=== PATIENT | female | born 1980 | race Caucasian/White ===

== ENCOUNTER 2021-05-05 11:39 | Inpatient (IN) | payer MEDICAID, OTHER ==
[~2021-05-05] VITALS: Ht 165.1 cm; Wt 92.5 kg
[2021-05-05] VITALS (11 sets, daily range): BP systolic 94–114; BP diastolic 56–73
[2021-05-05] MEDS: POTASSIUM CHL 20MEQ/100ML 100 ML IV SCH ×2 (01:30→22:11)
[2021-05-05] MEDS ORDERED: MORPHINE SULFATE 4 MG/ML SYR/VIAL IV ONE (11:45)
[2021-05-05] MEDS ORDERED: ONDANSETRON HCL 4 MG/2 ML VIAL IV ONE (11:45)
[2021-05-05 12:16] LABS: Eosinophils # (auto) 0.1 10 ^3/uL (0-0.8); Hematocrit 17.7 % (36.0-46.0); Red Blood Cells 1.34 10^6/uL (4.0-5.20)
[2021-05-05 12:18] LABS: Basophils # (auto) 0.1 10 ^3/uL (0-0.2); Basophils % (auto) 0.5 % (0.0-2.0); Eosinophils % (auto) 0.9 % (0.0-7.0); Lymphocytes % (auto) 6.1 % (10.0-50.0); Mean Corpuscular Hemoglobin 45.3 pg (28.0-32.0); Mean Corpuscular Hgb Conc. 34.2 g/dL (32.0-36.0); Mean Corpuscular Volume 132.7 fL (80.0-100.0); Monocytes # (auto) 0.6 10 ^3/uL (0-1.3); Monocytes % (auto) 3.5 % (0.0-12.0); Neutrophils # (auto) 14.9 10 ^3/uL (1.6-8.6); Nucleated Red Blood Cells % 0.3 %; White Blood Cell 16.8 10^3/uL (4.4-10.8)
[2021-05-05 12:24] LABS: Hemoglobin 6.1 g/dL (12.2-16.2)
[2021-05-05 12:25] LABS: Albumin 1.7 g/dL (3.4-5.0); Calcium 7.1 mg/dL (8.5-10.1); INR 1.69 (0.9-1.15); Partial Thromboplastin Time 36.5 sec (23.6-33.0)
[2021-05-05 12:30] LABS: BUN/Creatinine Ratio 29.5; Bilirubin, Total 5.5 mg/dL (0.2-1.0); Total Protein 6.8 g/dL (6.4-8.2)
[2021-05-05 12:39] LABS: Potassium 2.4 mmol/L (3.5-5.1)
[2021-05-05] MEDS ORDERED: POTASSIUM CHL 20 Meq TABLET PO ONE ×2 (13:00→21:30)
[2021-05-05] MEDS ORDERED: POTASSIUM CHL 20MEQ/100ML 100 ML IV ONE (13:00)
[2021-05-05] MEDS ORDERED: SODIUM CHL 3% 500 ML IV ONE (13:00)
[2021-05-05] MEDS ORDERED: NITROGLYCERIN 0.4 MG SL TAB SL PRN (14:00)
[2021-05-05] MEDS ORDERED: MORPHINE SULFATE INJECTION 2 MG/ML SYRG IV PRN (14:00)
[2021-05-05] MEDS ORDERED: PANTOPRAZOLE 40mg/50ML NS AE 50 ML IV SCH (14:15)
[2021-05-05] MEDS ORDERED: PANTOPRAZOLE 40 MG/10 ML VIAL INJ IV ONE (14:15)
[2021-05-05] MEDS ORDERED: PANTOPRAZOLE 80 MG in SODIUM CHL 0.9% 80 ML IV ONE (14:50)
[2021-05-05] MEDS ORDERED: PHYTONADIONE(VitK) ORAL Susp 5mg/5ml(1mg/ml) PO ONE (15:15)
[2021-05-05] MEDS: SOD CHL 0.9%/ KCL 40MEQ 1,000 ML IV SCH ×2 (15:30→23:00)
[2021-05-05] MEDS: MAGNESIUM SULFATE 1GM/100ML 100 ML IV SCH ×4 (16:00→19:56)
[2021-05-05 16:18] LABS: Urine Bacteria FEW /hpf (None Seen); Urine Blood Negative /uL (Negative); Urine Specific Gravity 1.011 (1.001-1.035); Urine WBC 2 /hpf (0 - 5)
[2021-05-05 16:34] LABS: BUN/Creatinine Ratio 31.3; Calcium 6.5 mg/dL (8.5-10.1)
[2021-05-05 16:42] LABS: Creatinine, Urine 71 mg/dL (30.0-125.0); Protein, Urine 23.7 mg/dL (0.0-11.9); Sodium Urine < 5 mmol/L (40-220)
[2021-05-05 16:43] LABS: Folate (Folic Acid) 0.99 ng/mL (5.38-24)
[2021-05-05 16:53] LABS: Potassium 2.6 mmol/L (3.5-5.1)
[2021-05-05 17:18] LABS: % Iron Saturation 98.3 % (15-50)
[2021-05-05 20:48] LABS: Urine Bacteria FEW /hpf (None Seen); Urine Blood Negative /uL (Negative); Urine Specific Gravity 1.011 (1.001-1.035); Urine WBC 2 /hpf (0 - 5)
[2021-05-05 20:54] LABS: BUN/Creatinine Ratio 26.9; Calcium 6.7 mg/dL (8.5-10.1)
[2021-05-05 20:57] LABS: Potassium 2.8 mmol/L (3.5-5.1)
[2021-05-05] MEDS: MORPHINE SULFATE INJECTION 2 MG/ML SYRG IV PRN (22:10)
[2021-05-05] MEDS: PANTOPRAZOLE 40 MG/10 ML VIAL INJ IV SCH (22:11)
[2021-05-05] MEDS ORDERED: DOPamine 1600MCG/ML D5W 250 ML IV SCH (23:00)
[2021-05-05] MEDS: DOPamine 1600MCG/ML D5W 250 ML IV SCH (23:07)
[2021-05-06] VITALS (7 sets, daily range): BP systolic 93–118; BP diastolic 58–73
[2021-05-06 01:09] LABS: Hemoglobin 7.5 g/dL (12.2-16.2)
[2021-05-06 01:10] LABS: Hematocrit 21.2 % (36.0-46.0); Mean Corpuscular Hemoglobin 40.1 pg (28.0-32.0); Mean Corpuscular Hgb Conc. 35.4 g/dL (32.0-36.0); Mean Corpuscular Volume 113.2 fL (80.0-100.0); Red Blood Cells 1.87 10^6/uL (4.0-5.20); White Blood Cell 16.1 10^3/uL (4.4-10.8)
[2021-05-06 01:18] LABS: Red Cell Distribution Width 30.7 % (11.8-14.3)
[2021-05-06 01:19] LABS: Basophils % (manual) 0 (0.0-2.0); Blast Cells 0; Eosinophils % (manual) 0 (0-7); Metamyelocytes % 0; Myelocytes % 0; Promyelocytes % 0; Reactive Lymphocytes 0
[2021-05-06 01:29] LABS: Magnesium 2.5 mg/dL (1.6-2.6)
[2021-05-06 01:51] LABS: Band Neutrophils % (manual) 13; Lymphocytes % (manual) 7 (10.0-50.0); Monocytes % (manual) 5 (0-12)
[2021-05-06 04:02] LABS: Eosinophils # (auto) 0.1 10 ^3/uL (0-0.8); Eosinophils % (auto) 0.9 % (0.0-7.0); Mean Corpuscular Hemoglobin 39.1 pg (28.0-32.0)
[2021-05-06 04:03] LABS: Basophils # (auto) 0 10 ^3/uL (0-0.2); Basophils % (auto) 0.2 % (0.0-2.0); Hematocrit 22.9 % (36.0-46.0); Lymphocytes # (auto) 0.8 10 ^3/uL (0.4-5.4); Lymphocytes % (auto) 5.4 % (10.0-50.0); Mean Corpuscular Hgb Conc. 35.1 g/dL (32.0-36.0); Mean Corpuscular Volume 111.7 fL (80.0-100.0); Monocytes # (auto) 0.4 10 ^3/uL (0-1.3); Neutrophils % (auto) 90.5 % (37.0-80.0); Nucleated Red Blood Cells % 0.2 %; Red Blood Cells 2.05 10^6/uL (4.0-5.20); White Blood Cell 14.3 10^3/uL (4.4-10.8)
[2021-05-06 04:04] LABS: Red Cell Distribution Width 30.6 % (11.8-14.3)
[2021-05-06 04:16] LABS: INR 1.45 (0.9-1.15)
[2021-05-06 04:19] LABS: Albumin 2.1 g/dL (3.4-5.0); Bilirubin, Direct 5.6 mg/dL (0-0.2); Calcium 6.9 mg/dL (8.5-10.1); Potassium 3.1 mmol/L (3.5-5.1)
[2021-05-06 04:27] LABS: BUN/Creatinine Ratio 24.7; Bilirubin, Total 7.2 mg/dL (0.2-1.0); CRP High Sensitivity 7.43 mg/dL (< 0.3); Total Protein 7.5 g/dL (6.4-8.2)
[2021-05-06] MEDS: SOD CHL 0.9%/ KCL 40MEQ 1,000 ML IV SCH ×3 (04:37→19:25)
[2021-05-06] MEDS: OCTREOTIDE ACETATE 100 MCG/ML VL SUBCUT SCH ×3 (05:39→21:18)
[2021-05-06] MEDS ORDERED: BUMETANIDE 2.5mg/10ml (0.25 mg/ml) INJ IV ONE (08:30)
[2021-05-06] MEDS ORDERED: SODIUM CHL 3% 500 ML IV ONE (08:30)
[2021-05-06] MEDS ORDERED: SODIUM CHL 3% 500 ML IV SCH (08:45)
[2021-05-06] MEDS: PANTOPRAZOLE 40 MG/10 ML VIAL INJ IV SCH ×2 (09:16→21:17)
[2021-05-06] MEDS: POTASSIUM EFFERVESENT TAB 25 MEQ PO SCH ×2 (09:17→14:36)
[2021-05-06] MEDS: THIAMINE 100mg/ml INJ (200mg/2ml VIAL) IV SCH (09:17)
[2021-05-06] MEDS: FOLIC ACID 1 MG in D5W 5% 50 ML INJ SCH (10:01)
[2021-05-06 10:24] LABS: Calcium 6.6 mg/dL (8.5-10.1); Potassium 3.9 mmol/L (3.5-5.1)
[2021-05-06 10:26] LABS: BUN/Creatinine Ratio 21.9
[2021-05-06] MEDS: MORPHINE SULFATE INJECTION 2 MG/ML SYRG IV PRN (10:52)
[2021-05-06 12:10] LABS: Basophils # (auto) 0 10 ^3/uL (0-0.2); Hemoglobin 7.3 g/dL (12.2-16.2); Lymphocytes # (auto) 0.8 10 ^3/uL (0.4-5.4); Monocytes # (auto) 0.6 10 ^3/uL (0-1.3); Neutrophils # (auto) 14.1 10 ^3/uL (1.6-8.6); White Blood Cell 15.6 10^3/uL (4.4-10.8)
[2021-05-06 12:11] LABS: Basophils % (auto) 0.2 % (0.0-2.0); Eosinophils # (auto) 0.2 10 ^3/uL (0-0.8); Eosinophils % (auto) 1.1 % (0.0-7.0); Hematocrit 21.3 % (36.0-46.0); Mean Corpuscular Hemoglobin 38.9 pg (28.0-32.0); Mean Corpuscular Hgb Conc. 34.3 g/dL (32.0-36.0); Mean Corpuscular Volume 113.2 fL (80.0-100.0); Monocytes % (auto) 3.6 % (0.0-12.0); Neutrophils % (auto) 90.1 % (37.0-80.0); Nucleated Red Blood Cells % 0.1 %; Red Blood Cells 1.88 10^6/uL (4.0-5.20)
[2021-05-06 12:42] LABS: Red Cell Distribution Width 30.2 % (11.8-14.3)
[2021-05-06] MEDS ORDERED: SODIUM PHOSPHATES 20 MEQ in SODIUM CHL 0.9% 100 ML IV ONE (15:00)
[2021-05-06] MEDS ORDERED: LACTULOSE 20Gm/30ML SOLN PO ONE (15:00)
[2021-05-06 15:40] LABS: Calcium 6.8 mg/dL (8.5-10.1); Potassium 4.4 mmol/L (3.5-5.1)
[2021-05-06] MEDS ORDERED: ONDANSETRON HCL 4 MG/2 ML VIAL ONE (16:13)
[2021-05-06] MEDS: DOPamine 1600MCG/ML D5W 250 ML IV SCH (22:01)
[2021-05-06 22:53] LABS: Basophils # (auto) 0 10 ^3/uL (0-0.2); Eosinophils # (auto) 0.2 10 ^3/uL (0-0.8); Eosinophils % (auto) 1.6 % (0.0-7.0); Lymphocytes # (auto) 1.1 10 ^3/uL (0.4-5.4)
[2021-05-06 22:55] LABS: Hematocrit 24.4 % (36.0-46.0); Hemoglobin 8.4 g/dL (12.2-16.2); Lymphocytes % (auto) 7.1 % (10.0-50.0); Mean Corpuscular Hemoglobin 37.6 pg (28.0-32.0); Mean Corpuscular Hgb Conc. 34.4 g/dL (32.0-36.0); Mean Corpuscular Volume 109.4 fL (80.0-100.0); Monocytes # (auto) 0.1 10 ^3/uL (0-1.3); Monocytes % (auto) 0.9 % (0.0-12.0); Neutrophils # (auto) 13.8 10 ^3/uL (1.6-8.6); Neutrophils % (auto) 90.4 % (37.0-80.0); Nucleated Red Blood Cells % 0.1 %; Red Blood Cells 2.23 10^6/uL (4.0-5.20); Red Cell Distribution Width 29.4 % (11.8-14.3); White Blood Cell 15.3 10^3/uL (4.4-10.8)
[2021-05-06 23:15] LABS: BUN/Creatinine Ratio 18.8
[2021-05-06 23:27] LABS: Calcium 6.7 mg/dL (8.5-10.1)
[2021-05-07] MEDS: SOD CHL 0.9%/ KCL 40MEQ 1,000 ML IV SCH (04:05)
[2021-05-07] MEDS: OCTREOTIDE ACETATE 100 MCG/ML VL SUBCUT SCH ×3 (05:50→21:22)
[2021-05-07 06:10] LABS: Eosinophils # (auto) 0.3 10 ^3/uL (0-0.8); Nucleated Red Blood Cells % 0.1 %
[2021-05-07 06:11] LABS: Basophils # (auto) 0 10 ^3/uL (0-0.2); Basophils % (auto) 0.1 % (0.0-2.0); Hematocrit 23.5 % (36.0-46.0); Hemoglobin 8.2 g/dL (12.2-16.2); Lymphocytes % (auto) 6.2 % (10.0-50.0); Mean Corpuscular Hemoglobin 38.1 pg (28.0-32.0); Mean Corpuscular Volume 108.9 fL (80.0-100.0); Monocytes # (auto) 0.6 10 ^3/uL (0-1.3); Monocytes % (auto) 3.3 % (0.0-12.0); Neutrophils # (auto) 14.9 10 ^3/uL (1.6-8.6); Neutrophils % (auto) 88.4 % (37.0-80.0); Red Blood Cells 2.16 10^6/uL (4.0-5.20); White Blood Cell 16.8 10^3/uL (4.4-10.8)
[2021-05-07 06:12] LABS: Red Cell Distribution Width 29.5 % (11.8-14.3)
[2021-05-07 06:23] LABS: INR 1.44 (0.9-1.15)
[2021-05-07 06:29] LABS: Albumin 1.8 g/dL (3.4-5.0)
[2021-05-07 06:31] LABS: BUN/Creatinine Ratio 18.3; Calcium 6.9 mg/dL (8.5-10.1)
[2021-05-07 06:33] LABS: Bilirubin, Direct 6.3 mg/dL (0-0.2); Total Protein 6.7 g/dL (6.4-8.2)
[2021-05-07] MEDS: PANTOPRAZOLE 40 MG/10 ML VIAL INJ IV SCH ×2 (10:02→21:22)
[2021-05-07] MEDS: THIAMINE 100mg/ml INJ (200mg/2ml VIAL) IV SCH (10:08)
[2021-05-07] MEDS: FOLIC ACID 1 MG in D5W 5% 50 ML INJ SCH (10:36)
[2021-05-07] MEDS ORDERED: PHYTONADIONE(VitK) ORAL Susp 5mg/5ml(1mg/ml) PO ONE (10:45)
[2021-05-07] MEDS ORDERED: FUROSEMIDE 40 MG/4 ML VIAL IV ONE (11:15)
[2021-05-07 11:26] LABS: BUN/Creatinine Ratio 16.7; Calcium 7.2 mg/dL (8.5-10.1)
[2021-05-07 11:30] LABS: Potassium 5.1 mmol/L (3.5-5.1)
[2021-05-07 12:09] LABS: Hemoglobin 8.2 g/dL (12.2-16.2); Red Blood Cells 2.18 10^6/uL (4.0-5.20)
[2021-05-07 12:11] LABS: Hematocrit 23.9 % (36.0-46.0); Mean Corpuscular Hemoglobin 37.6 pg (28.0-32.0); Mean Corpuscular Hgb Conc. 34.4 g/dL (32.0-36.0); Mean Corpuscular Volume 109.4 fL (80.0-100.0); White Blood Cell 16.9 10^3/uL (4.4-10.8)
[2021-05-07 12:12] LABS: Red Cell Distribution Width 29.6 % (11.8-14.3)
[2021-05-07 12:14] LABS: Basophils % (manual) 0 (0.0-2.0); Blast Cells 0; Metamyelocytes % 0; Myelocytes % 0; Promyelocytes % 0; Reactive Lymphocytes 0
[2021-05-07 12:45] LABS: Band Neutrophils % (manual) 2; Eosinophils % (manual) 1 (0-7); Lymphocytes % (manual) 4 (10.0-50.0); Monocytes % (manual) 7 (0-12)
[2021-05-07 20:24] LABS: Basophils # (auto) 0.1 10 ^3/uL (0-0.2); Eosinophils # (auto) 0.3 10 ^3/uL (0-0.8); Hemoglobin 8.3 g/dL (12.2-16.2); Mean Corpuscular Hgb Conc. 34.2 g/dL (32.0-36.0); Monocytes # (auto) 0.7 10 ^3/uL (0-1.3)
[2021-05-07 20:27] LABS: Basophils % (auto) 0.6 % (0.0-2.0); Eosinophils % (auto) 1.8 % (0.0-7.0); Hematocrit 24.1 % (36.0-46.0); Lymphocytes # (auto) 1.2 10 ^3/uL (0.4-5.4); Lymphocytes % (auto) 8.2 % (10.0-50.0); Mean Corpuscular Hemoglobin 38.1 pg (28.0-32.0); Mean Corpuscular Volume 111.3 fL (80.0-100.0); Monocytes % (auto) 4.4 % (0.0-12.0); Neutrophils # (auto) 12.8 10 ^3/uL (1.6-8.6); Nucleated Red Blood Cells % 0.1 %; Red Blood Cells 2.17 10^6/uL (4.0-5.20); White Blood Cell 15.1 10^3/uL (4.4-10.8)
[2021-05-07 20:41] LABS: Calcium 7.4 mg/dL (8.5-10.1)
[2021-05-07] MEDS: DOPamine 1600MCG/ML D5W 250 ML IV SCH (21:16)
[2021-05-07 23:07] LABS: BUN/Creatinine Ratio 16.7; Calcium 7.2 mg/dL (8.5-10.1); Potassium 4.2 mmol/L (3.5-5.1)
[2021-05-07 23:50] VITALS: BP 108/74
[2021-05-08] MEDS ORDERED: LORA-483 PO (00:02)
[2021-05-08] MEDS ORDERED: OMEP-260 PO (00:02)
[2021-05-08 05:00] VITALS: BP 107/64
[2021-05-08] MEDS: CYCLOBENZAPRINE HCL 10 MG TAB PO PRN ×3 (05:01→21:50)
[2021-05-08] MEDS: OCTREOTIDE ACETATE 100 MCG/ML VL SUBCUT SCH ×3 (06:43→21:34)
[2021-05-08 07:58] LABS: BUN/Creatinine Ratio 17.9; Calcium 7.4 mg/dL (8.5-10.1)
[2021-05-08 08:13] VITALS: BP 100/61
[2021-05-08] MEDS: PANTOPRAZOLE 40 MG/10 ML VIAL INJ IV SCH ×2 (10:22→21:33)
[2021-05-08] MEDS: FOLIC ACID 1 MG in D5W 5% 50 ML INJ SCH (10:23)
[2021-05-08] MEDS: THIAMINE 100mg/ml INJ (200mg/2ml VIAL) IV SCH (10:24)
[2021-05-08] MEDS ORDERED: SODIUM PHOSPHATES 40 MEQ in D5W 5% 250 ML IV ONE (11:00)
[2021-05-08] MEDS: DOPamine 1600MCG/ML D5W 250 ML IV SCH (11:10)
[2021-05-08 11:26] LABS: BUN/Creatinine Ratio 12.1; Calcium 7.5 mg/dL (8.5-10.1)
[2021-05-08 12:03] VITALS: BP 104/73
[2021-05-08 16:13] LABS: Basophils # (auto) 0.1 10 ^3/uL (0-0.2); Hemoglobin 7.8 g/dL (12.2-16.2); Lymphocytes # (auto) 1.2 10 ^3/uL (0.4-5.4); Monocytes # (auto) 0.9 10 ^3/uL (0-1.3); Monocytes % (auto) 6.5 % (0.0-12.0); Neutrophils # (auto) 10.7 10 ^3/uL (1.6-8.6); White Blood Cell 13.3 10^3/uL (4.4-10.8)
[2021-05-08 16:15] LABS: Basophils % (auto) 0.9 % (0.0-2.0); Eosinophils # (auto) 0.4 10 ^3/uL (0-0.8); Hematocrit 23.1 % (36.0-46.0); Lymphocytes % (auto) 8.8 % (10.0-50.0); Mean Corpuscular Hemoglobin 37.6 pg (28.0-32.0); Mean Corpuscular Hgb Conc. 33.9 g/dL (32.0-36.0); Neutrophils % (auto) 80.8 % (37.0-80.0); Nucleated Red Blood Cells % 0.1 %; Red Blood Cells 2.08 10^6/uL (4.0-5.20)
[2021-05-08 16:19] LABS: Red Cell Distribution Width 30.2 % (11.8-14.3)
[2021-05-08 16:27] LABS: BUN/Creatinine Ratio 12.5; Calcium 7.7 mg/dL (8.5-10.1)
[2021-05-08 16:35] VITALS: BP 108/69
[2021-05-08 19:00] LABS: Calcium 7.6 mg/dL (8.5-10.1)
[2021-05-08 19:02] LABS: BUN/Creatinine Ratio 11.3
[2021-05-08 22:00] VITALS: BP 105/67
[2021-05-08] MEDS ORDERED: TEMAZEPAM 15 MG CAP PO ONE (22:00)
[2021-05-09 01:26] LABS: BUN/Creatinine Ratio 10.5; Calcium 7.6 mg/dL (8.5-10.1); Potassium 3.8 mmol/L (3.5-5.1)
[2021-05-09 05:00] VITALS: BP 117/70
[2021-05-09 05:37] LABS: INR 1.49 (0.9-1.15)
[2021-05-09 05:46] LABS: BUN/Creatinine Ratio 10.7; Calcium 7.7 mg/dL (8.5-10.1); Potassium 3.8 mmol/L (3.5-5.1)
[2021-05-09 05:48] LABS: Albumin 1.8 g/dL (3.4-5.0)
[2021-05-09 05:53] LABS: Bilirubin, Direct 4.8 mg/dL (0-0.2); Bilirubin, Total 5.6 mg/dL (0.2-1.0); Total Protein 6.8 g/dL (6.4-8.2)
[2021-05-09] MEDS: OCTREOTIDE ACETATE 100 MCG/ML VL SUBCUT SCH ×2 (06:06→17:00)
[2021-05-09 09:00] VITALS: BP 103/53
[2021-05-09] MEDS: THIAMINE 100mg/ml INJ (200mg/2ml VIAL) IV SCH (10:28)
[2021-05-09] MEDS: FOLIC ACID 1 MG in D5W 5% 50 ML INJ SCH (10:28)
[2021-05-09] MEDS: PANTOPRAZOLE 40 MG/10 ML VIAL INJ IV SCH (10:28)
[2021-05-09] MEDS: CYCLOBENZAPRINE HCL 10 MG TAB PO PRN (11:26)
[2021-05-09 12:09] LABS: Calcium 8.1 mg/dL (8.5-10.1)
[2021-05-09 12:11] LABS: BUN/Creatinine Ratio 9.8
[2021-05-09] MEDS ORDERED: THIA50CA PO (16:00)
[2021-05-09] MEDS ORDERED: FOLI1TAB6 PO (16:00)
[2021-05-09] MEDS ORDERED: PANT40T PO (16:00)
[2021-05-09 17:00] VITALS: BP 120/66
[2021-05-09 19:20] VITALS: BP 142/70
[2021-05-12 09:41] LABS: Hepatitis B Surface Antibody Negative
[2021-05-12 10:16] LABS: Hepatitis A Total Antibody Positive
[2021-05-12 10:36] LABS: Hepatitis C Antibody Negative (Negative)
== END 2021-05-09 21:00 | disposition home health service (06) | DRG 280 ==
LOC: ER 11:39 → EDBD 11:39 → TELE 13:48 → TELE-WESTW 05-07 22:53
PROVIDERS: ADMIT Internal Medicine; ATTEND Internal Medicine
PROC: 30233K1 Transfusion of Nonautologous Frozen Plasma into Peripheral Vein, Percutaneous Approach (ICD-10-PCS; principal; 2021-05-05)
PROC: 30233N1 Transfusion of Nonautologous Red Blood Cells into Peripheral Vein, Percutaneous Approach (ICD-10-PCS; 2021-05-05)
PROC: 05HC33Z Insertion of Infusion Device into Left Basilic Vein, Percutaneous Approach (ICD-10-PCS; 2021-05-05)
PROC: B54NZZA Ultrasonography of Left Upper Extremity Veins, Guidance (ICD-10-PCS; 2021-05-05)
DX: K70.31 Alcoholic cirrhosis of liver with ascites (principal); D68.4 Acquired coagulation factor deficiency; I95.9 Hypotension, unspecified; D62 Acute posthemorrhagic anemia; E87.1 Hypo-osmolality and hyponatremia; E87.3 Alkalosis; E83.39 Other disorders of phosphorus metabolism; E87.8 Other disorders of electrolyte and fluid balance, not elsewhere classified; K92.2 Gastrointestinal hemorrhage, unspecified; E11.9 Type 2 diabetes mellitus without complications; E78.5 Hyperlipidemia, unspecified; E87.6 Hypokalemia; F10.20 Alcohol dependence, uncomplicated; I10 Essential (primary) hypertension; D72.829 Elevated white blood cell count, unspecified; K21.9 Gastro-esophageal reflux disease without esophagitis; E53.8 Deficiency of other specified B group vitamins; E66.9 Obesity, unspecified; Z79.899 Other long term (current) drug therapy; Z85.41 Personal history of malignant neoplasm of cervix uteri; Z87.891 Personal history of nicotine dependence; Z90.710 Acquired absence of both cervix and uterus; Z88.5 Allergy status to narcotic agent
CPT/HCPCS: 36415; 36430; 71045; 74176; 76700; 76705; 76830; 76856; 80048; 80053; 80076; 81001; 82140; 82270; 82570; 82607; 82746; 83540; 83550; 83690; 83735; 83880; 84100; 84156; 84295; 84300; 85007; 85025; 85027; 85610; 85730; 86141; 86704; 86706; 86708; 86803; 86850; 86900; 86901; 86920; 87040; 87340; 87426; 93005; 96361; 96365; 96367; 97163; 99291; C9113; G0378; J2405; J3480; J7060

== ENCOUNTER 2021-05-14 11:51 | Emergency (ER) | payer MEDICAID ==
[~2021-05-14] VITALS: Ht 170.2 cm; Wt 81.6 kg
[~2021-05-14 11:51] MED LIST: FOLI1TAB6 PO; LORA-483 PO; PANT40T PO; THIA50CA PO
[2021-05-14 12:34] VITALS: BP 106/66
[2021-05-14] MEDS ORDERED: IBUPROFEN 600 MG TAB PO ONE (12:45)
[2021-05-14] MEDS ORDERED: CYCLOBENZAPRINE HCL 10 MG TAB PO ONE (12:45)
[2021-05-14 13:26] LABS: Basophils # (auto) 0 10 ^3/uL (0-0.2); Eosinophils # (auto) 0.3 10 ^3/uL (0-0.8); Hemoglobin 8.3 g/dL (12.2-16.2); Lymphocytes # (auto) 0.9 10 ^3/uL (0.4-5.4); Mean Corpuscular Hgb Conc. 34.5 g/dL (32.0-36.0); Monocytes # (auto) 0.5 10 ^3/uL (0-1.3)
[2021-05-14 13:27] LABS: Eosinophils % (auto) 3.1 % (0.0-7.0); Hematocrit 23.9 % (36.0-46.0); Lymphocytes % (auto) 9.4 % (10.0-50.0); Mean Corpuscular Hemoglobin 38.9 pg (28.0-32.0); Mean Corpuscular Volume 112.8 fL (80.0-100.0); Monocytes % (auto) 5.7 % (0.0-12.0); Neutrophils # (auto) 7.6 10 ^3/uL (1.6-8.6); Neutrophils % (auto) 81.8 % (37.0-80.0); Red Blood Cells 2.12 10^6/uL (4.0-5.20); White Blood Cell 9.2 10^3/uL (4.4-10.8)
[2021-05-14 13:33] LABS: Red Cell Distribution Width 28.8 % (11.8-14.3)
[2021-05-14 13:37] LABS: INR 1.47 (0.9-1.15); Partial Thromboplastin Time 31.9 sec (23.6-33.0)
[2021-05-14 13:42] LABS: Albumin 2.1 g/dL (3.4-5.0); Anion Gap 7 (5-15); Blood Urea Nitrogen 5 mg/dL (7-18); Calcium 8.3 mg/dL (8.5-10.1); Carbon Dioxide 21 mmol/L (21-32); Chloride 106 mmol/L (98-107); Glucose 104 mg/dL (74-106); Lipase 442 U/L (73-393); Potassium 3.9 mmol/L (3.5-5.1); Sodium 134 mmol/L (136-145)
[2021-05-14 13:48] LABS: Alanine Aminotransferase 38 U/L (13-56); Alkaline Phosphatase 139 U/L (45-117); Aspartate Aminotransferase 80 U/L (15-37); BUN/Creatinine Ratio 8.1; Bilirubin, Total 5.2 mg/dL (0.2-1.0); GFR African American 136 mL/min; GFR Non-African American 112 mL/min; Total Protein 7.6 g/dL (6.4-8.2)
[2021-05-14 16:15] LABS: Urine Bacteria FEW /hpf (None Seen); Urine Blood TRACE /uL (Negative); Urine Specific Gravity 1.011 (1.001-1.035); Urine WBC 11 /hpf (0 - 5)
== END 2021-05-14 16:17 | disposition left against medical advice (07) ==
LOC: ER 11:51
DX: M79.605 Pain in left leg (principal); M79.604 Pain in right leg; I10 Essential (primary) hypertension; E78.5 Hyperlipidemia, unspecified; Z90.710 Acquired absence of both cervix and uterus; Z87.891 Personal history of nicotine dependence; Z79.899 Other long term (current) drug therapy; Z88.5 Allergy status to narcotic agent
CPT/HCPCS: 36415; 71045; 76705; 80053; 81001; 83605; 83690; 83880; 84484; 85025; 85610; 85730; 93005; 93970

== ENCOUNTER 2024-02-22 13:42 | Emergency (ER) | payer MEDICAID ==
[~2024-02-22] VITALS: Ht 167.6 cm; Wt 95.6 kg
[~2024-02-22 13:42] MED LIST changes: +FOLI-119 PO; -FOLI1TAB6 PO
[2024-02-22 14:16] VITALS: BP 122/89; PULSE 102; RESP 17; TEMP 98.6; O2SAT 96
[2024-02-22] MEDS ORDERED: TRIA0.02 TOP (15:17)
[2024-02-22] MEDS ORDERED: BACL10TA PO (15:17)
== END 2024-02-22 15:20 | disposition home or self-care (01) ==
LOC: ER 13:42
DX: M72.2 Plantar fascial fibromatosis (principal); M77.31 Calcaneal spur, right foot; I10 Essential (primary) hypertension; E78.5 Hyperlipidemia, unspecified; F41.9 Anxiety disorder, unspecified; F10.90 Alcohol use, unspecified, uncomplicated; Z90.710 Acquired absence of both cervix and uterus; Z87.891 Personal history of nicotine dependence; Z88.5 Allergy status to narcotic agent; Z88.6 Allergy status to analgesic agent; Z79.899 Other long term (current) drug therapy; Y90.0 Blood alcohol level of less than 20 mg/100 ml
CPT/HCPCS: 73630